=== PATIENT | male | born 1945 | race Caucasian/White ===

== ENCOUNTER 2019-02-16 13:50 | Outpatient (CLI) | payer MEDICARE, BC ==
[~2019-02-16] VITALS: Ht 162.6 cm; Wt 94.8 kg
[2019-02-16 14:10] VITALS: BP 137/65
--- NOTE | 2019-02-16 16:15 | Diagnostic Imaging Report ---
INDICATION: Preoperative evaluation in patient with chest congestion. EXAMINATION: PA and lateral views of the chest are obtained. COMPARISON: There is no previous study for comparison. FINDINGS: There is mild cardiomegaly. 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 Prominent interstitial markings are seen throughout the lungs with blunting of the costophrenic sulci. There are also surgical clips in the right axilla. There is no pneumothorax or lobar consolidation. IMPRESSION: Interstitial markings are prominent throughout the lungs with mild bilateral pleural fluid and/or thickening. This may be on the basis of congestive heart failure and interstitial edema. Clinical correlation and short-term radiographic follow-up would be of use. Postoperative changes in the mediastinum, right axilla, and left carotid artery are noted. Dictated by: Dictated on workstation # [id number]
== END 2019-02-16 15:00 | disposition home or self-care (01) ==
LOC: PREOP 13:50
PROVIDERS: ATTEND Orthopaedic Surgery
DX: Z01.818 Encounter for other preprocedural examination (principal); M48.061 Spinal stenosis, lumbar region without neurogenic claudication
CPT/HCPCS: 71046; 87081